=== PATIENT | male | born 1940 | race Caucasian/White ===

== ENCOUNTER → 2016-08-09 | Outpatient (CLI) | payer MEDICARE, BC | END | disposition home or self-care (01) | LOC: PCVCCLINIC 11:19 | PROVIDERS: ATTEND Internal Medicine Cardiovascular Disease | DX: E78.00 Pure hypercholesterolemia, unspecified (principal); I77.9 Disorder of arteries and arterioles, unspecified; I71.4 Abdominal aortic aneurysm, without rupture; E11.9 Type 2 diabetes mellitus without complications; I10 Essential (primary) hypertension; I25.10 Atherosclerotic heart disease of native coronary artery without angina pectoris | CPT/HCPCS: 80061; 93005; G0463 ==

== ENCOUNTER → 2017-01-18 | Outpatient (CLI) | payer MEDICARE, BC ==
--- NOTE | 2017-01-18 12:41 | PCVCIMAG ---
APPROVED REPORT Laterality: Bilateral Indications Bruit Stenosis Doppler Spectral Velocity Analysis PSV / EDVPSV / EDV ECA (R) 129 / 15 cm/sECA (L) 105 / 4 cm/s dICA (R) 62 / 22 cm/sdICA (L) 71 / 23 cm/s Bridgette (R) 120 / 36 cm/smICA (L) 78 / 27 cm/s pICA (R) 95 / 22 cm/spICA (L) 42 / 9 cm/s Bulb (R) 52 / 12 cm/sBulb (L) 46 / 15 cm/s dCCA (R) 63 / 14 cm/sdCCA (L) 62 / 13 cm/s mCCA (R) 64 / 13 cm/smCCA (L) 80 / 17 cm/s Vert (R) 65 / 18 cm/sVert (L) 58 / 15 cm/s ICA/CCA ICA/CCA Findings The right carotid bulb has moderate calcified plaque. The right proximal internal carotid artery shows 40-50% stenosis. The right common carotid artery shows no significant stenosis. The right external carotid artery shows >50% stenosis. The left carotid bulb has moderate plaque. The left proximal internal carotid artery shows <40% stenosis. The left common carotid artery shows no significant stenosis. The left external carotid artery shows no significant stenosis. Conclusion 1. Right internal carotid artery stenosis (40-50%) 2. Left internal carotid artery stenosis (<40%) 3. Antegrade vertebral flow
--- NOTE | 2017-01-18 12:59 | PCVCIMAG ---
EXAM: AORTOILIAC DUPLEX INDICATION: Peripheral arterial disease FINDINGS: AORTA: Suprarenal aorta measures maximum diameter of 2.9 cm. There is a fusiform infrarenal aortic aneurysm. The infrarenal aorta measures maximum diameter of 2.6 x 3.4 cm. No aortic stenosis. RIGHT COMMON ILIAC ARTERY: Maximum diameter is 2.0 cm. No significant stenosis. RIGHT EXTERNAL ILIAC ARTERY: No significant stenosis. LEFT COMMON ILIAC ARTERY: Maximum diameter is 1.3 cm. No significant stenosis. LEFT EXTERNAL ILIAC ARTERY: No significant stenosis. IMPRESSION: 3.4 cm infrarenal abdominal aortic aneurysm has increased in size from 3.0 cm on June 2015 study. Moderate ectasia right common iliac artery. LOC:[id number]
--- NOTE | 2017-01-18 13:02 | PCVCIMAG ---
EXAM: BILATERAL LOWER EXTREMITY ARTERIAL DUPLEX INDICATION: Peripheral Arterial Disease. Leg pain. FINDINGS: Right Leg: Satisfactory arterial waveforms throughout the common/profunda/superficial femoral, popliteal, anterior tibial, peroneal, and posterior tibial arteries. No flow limiting stenosis seen. Previous stent in the mid/distal superficial femoral artery and upper popliteal artery remain patent. Left Leg: Satisfactory arterial waveforms in the common femoral and profunda femoral arteries and the superficial femoral and popliteal artery without flow-limiting stenosis. Previous stent mid/distal superficial femoral artery maintaining good patency. The anterior tibial and posterior tibial arteries show satisfactory patency. 80% stenosis proximal peroneal artery. IMPRESSION: No flow limiting stenosis in the right lower extremity. Previous right superficial femoral artery and popliteal artery stents are maintaining good patency. Previous left superficial femoral artery stents maintaining satisfactory patency. 80% stenosis proximal left peroneal artery. LOC:[id number]
--- NOTE | 2017-01-18 13:04 | PCVCIMAG ---
EXAM: NONINVASIVE ARTERIAL EXAMINATION OF BOTH LOWER EXTREMITIES INCLUDING PRE AND POST EXERCISE PRESSURE MEASUREMENTS AND DOPPLER WAVEFORMS INDICATION: Peripheral Arterial Disease. Leg pain. FINDINGS: Right Brachial: 120 mm Hg. Right Dorsalis Pedis: 102 mm Hg. Right Posterior Tibial: 139 mm Hg. Right RANDY = 1.11. Left Brachial: 125 mm Hg. Left Dorsalis Pedis: 131 mm Hg. Left Posterior Tibial: 119 mm Hg. Left RANDY = 1.05. Post Exercise: Left Brachial 130 mm Hg. Right Posterior Tibial: 123 mm Hg. Left Dorsalis Pedis: 124 mm Hg. Right RANDY = 0.95. Left RNADY = 0.95. IMPRESSION: No resting ischemia in the right lower extremity. No exercise induced ischemia in the right lower extremity. No resting ischemia in the left lower extremity. No exercise induced ischemia in the left lower extremity. LOC:[id number]
== END | disposition home or self-care (01) ==
LOC: PCVCIMAG 09:10
PROVIDERS: ATTEND Internal Medicine Cardiovascular Disease
DX: I65.23 Occlusion and stenosis of bilateral carotid arteries (principal); I71.4 Abdominal aortic aneurysm, without rupture; I70.292 Other atherosclerosis of native arteries of extremities, left leg; E11.9 Type 2 diabetes mellitus without complications; J44.9 Chronic obstructive pulmonary disease, unspecified; Z95.828 Presence of other vascular implants and grafts
CPT/HCPCS: 93880; 93923; 93925; 93978; 93924

== ENCOUNTER → 2017-02-08 | Outpatient (CLI) | payer MEDICARE, BC ==
[~2017-02-08] MED LIST: REGADENOSON 0.4 MG/5 ML DISP.SYRIN. IV ONE
--- NOTE | 2017-02-08 12:44 | PCVCIMAG ---
APPROVED REPORT Exam: Nuclear Stress Test Indication: CAD Patient Location: Out-Patient Stress Nurse: Korina Hager RN, Jaclyn Padilla RN [place] Tech:Kathleen SEN Crowder Ht: 5 ft 9 in Wt: 128 lbs BSA: 1.71 m2 HR: 80 bpm BP: 136/63 mmHg BMI: 18.9 Rhythm: SR, PAC'S Medical History Medical History: Hyperlipidemia, HTN, Diabetes, Age, PVD, CVD, Current Smoker, C OPD Medications: Plavix, Metoprolol (held 24 hours) Lisinopril, Glimiperide, Simvastatin, Metformin Allergies: No known drug allergies Previous Cardiac Procedures: 2011 PCI-LAD, last cath 2014 Pretest Chest Pain Characteristics: No chest pain Exercise History: Sedentary Physical Disabilities: Back Stress Test Details Stress Test: Pharmacologic stress testing performed using 0.4 mg of regadenoson per 5 mL given IV over 10 seconds. Reason for pharmacologic stress test: physical limitation. HR Resting HR: 80 bpmMax Heart Rate (APMHR): 145 bpm Max HR Achieved: 106 bpmTarget HR (85% APMHR): 123 bpm % of APMHR: 73 Recovery HR: 94 bpm BP Resting BP: 136/63 mmHg Max BP: 111/59 mmHg ECG Resting ECG: Sinus Rhythm, PACs Stress ECG: Sinus Tachycardia ST Change: Non-ischemic Recovery ECG: Sinus Tachycardia Clinical Reason for Termination: Completed protocol Stress Symptoms: Dyspnea Exercise duration: 0 min 55 sec Exercise capacity: 1.0 METs Symptoms resolved during recovery. NM EXAM: Myocardial Perfusion REST/STRESS Imaging Protocol: Rest Tc-99m/Stress Tc-99m 1 day Resting Data Rest SPECT myocardial perfusion imaging was performed in supine position 45 minutes following the intravenous injection of 8.9 mCi of Tc-99m Sestamibi. Time of rest injection: 0920 Date: 02/08/2017 Administration Route: IV Administration Site: Right Wrist Pharmacologic Stress Pharmacologic stress test was performed by injecting Regadenoson 0.4 mg IV push followed by the intravenous injection of 26.1 mCi of Tc-99m Sestamibi. Time of stress injection: 1040 Date: 02/08/2017 Administration Route: IV Administration Site: Right Wrist Gated Stress SPECT was performed 45 minutes after stress injection. The images were gated to evaluate regional wall motion and calculate left ventricular ejection fraction. Comments Pt unable to raise arms, images acquired wtih arms at side. Study Quality Study: Good Artifact: Mild Soft tissue attenuation artifact Study Data Post stress, the left ventricular ejection was 68%.. SSS: 1 SRS: 2 SDS: 0 TID = 0.83. Perfusion There is a small area of mildly reduced uptake in the mid segment of the anterior wall which is seen on the stress images as well as the resting images. Wall Motion Normal left ventricular wall motion. Nuclear Conclusion ECG Findings: negative for ischemia Clinical Findings: non-diagnostic Nuclear Findings: negative for ischemia This study is of low probability for inducible ischemia. There is a small, fixed defect within the mid anterior segment, possibly due to attenuation artifact versus a small infarct. There is normal global and segmental LV systolic function.
== END | disposition home or self-care (01) ==
LOC: PCVCIMAG 08:57
PROVIDERS: ATTEND Internal Medicine Cardiovascular Disease
DX: I25.10 Atherosclerotic heart disease of native coronary artery without angina pectoris (principal); E11.9 Type 2 diabetes mellitus without complications; E78.00 Pure hypercholesterolemia, unspecified; I73.9 Peripheral vascular disease, unspecified; I10 Essential (primary) hypertension; I71.4 Abdominal aortic aneurysm, without rupture; K52.9 Noninfective gastroenteritis and colitis, unspecified; J44.9 Chronic obstructive pulmonary disease, unspecified; M06.9 Rheumatoid arthritis, unspecified; Z72.0 Tobacco use; Z86.73 Personal history of transient ischemic attack (TIA), and cerebral infarction without residual deficits; Z79.84 Long term (current) use of oral hypoglycemic drugs; Z79.82 Long term (current) use of aspirin; Z79.899 Other long term (current) drug therapy
CPT/HCPCS: 78452; 80061; 93017; A9500; G0463; J2785

== ENCOUNTER → 2017-10-27 | Outpatient (CLI) | payer MEDICARE, BC | END | disposition home or self-care (01) | LOC: PCVCCLINIC 13:13 | DX: I25.10 Atherosclerotic heart disease of native coronary artery without angina pectoris (principal); I71.4 Abdominal aortic aneurysm, without rupture; I10 Essential (primary) hypertension; I73.9 Peripheral vascular disease, unspecified; E78.00 Pure hypercholesterolemia, unspecified; M06.9 Rheumatoid arthritis, unspecified; E11.9 Type 2 diabetes mellitus without complications; Z87.891 Personal history of nicotine dependence; Z79.84 Long term (current) use of oral hypoglycemic drugs; Z79.899 Other long term (current) drug therapy | CPT/HCPCS: 80061; 93005; G0463 ==